=== PATIENT | female | born 1990 | race African-American/Black ===

== ENCOUNTER 2019-09-13 16:08 | Emergency (ER) | payer SELFPAY ==
[~2019-09-13] VITALS: Ht 167.6 cm; Wt 77.0 kg
[2019-09-13 23:12] VITALS: BP 139/87
== END 2019-09-13 23:11 | disposition home or self-care (01) ==
LOC: ER 16:08
DX: M79.18 Myalgia, other site (principal); M54.5 Low back pain; I45.6 Pre-excitation syndrome; Z88.6 Allergy status to analgesic agent; V43.62XA Car passenger injured in collision with other type car in traffic accident, initial encounter; Y93.9 Activity, unspecified; Y92.410 Unspecified street and highway as the place of occurrence of the external cause
CPT/HCPCS: 99282